=== PATIENT | male | born 1990 | race African-American/Black ===

== ENCOUNTER 2017-09-27 05:30 | Emergency (ER) | payer BC ==
[~2017-09-27] VITALS: Ht 180.3 cm; Wt 93.0 kg
[2017-09-27] MEDS ORDERED: NORCO 5-325 TA1 EACH PO (06:13)
== END 2017-09-27 06:50 | disposition home or self-care (01) ==
LOC: ER 05:30
DX: S92.421A Displaced fracture of distal phalanx of right great toe, initial encounter for closed fracture (principal); S92.501A Displaced unspecified fracture of right lesser toe(s), initial encounter for closed fracture; W22.8XXA Striking against or struck by other objects, initial encounter; Y93.89 Activity, other specified; Y92.39 Other specified sports and athletic area as the place of occurrence of the external cause; Y99.8 Other external cause status

== ENCOUNTER 2018-10-28 21:31 | Emergency (ER) | payer BC ==
[~2018-10-28] VITALS: Ht 182.9 cm; Wt 95.3 kg
[~2018-10-28 21:31] MED LIST: NORCO 5-325 TA1 EACH PO
[2018-10-28 23:04] VITALS: BP 142/79
== END 2018-10-28 23:05 | disposition home or self-care (01) ==
LOC: ER 21:31
DX: J06.9 Acute upper respiratory infection, unspecified (principal)

== ENCOUNTER 2019-06-26 19:39 | Emergency (ER) | payer BC ==
[~2019-06-26] VITALS: Ht 180.3 cm; Wt 99.8 kg
[2019-06-26] MEDS ORDERED: IBUPROFEN 800800 M1 PO (20:56)
[2019-06-26 21:08] VITALS: BP 113/58
== END 2019-06-26 19:58 | disposition home or self-care (01) ==
LOC: ER 19:39
DX: S90.32XA Contusion of left foot, initial encounter (principal); W18.39XA Other fall on same level, initial encounter; Y93.61 Activity, american tackle football; Y92.89 Other specified places as the place of occurrence of the external cause; Y99.8 Other external cause status

== ENCOUNTER 2019-07-05 21:33 | Emergency (ER) | payer BC ==
[~2019-07-05] VITALS: Ht 180.3 cm; Wt 99.8 kg
[~2019-07-05 21:33] MED LIST changes: +IBUPROFEN 800800 M1 PO
[2019-07-05 21:34] VITALS: BP 164/90
== END 2019-07-05 21:49 | disposition home or self-care (01) ==
LOC: ER 21:33
DX: M79.672 Pain in left foot (principal)

== ENCOUNTER 2021-03-16 22:29 | Emergency (ER) | payer BC ==
[~2021-03-16] VITALS: Ht 180.3 cm; Wt 99.8 kg
[2021-03-16] MEDS ORDERED: NOHOMEMEDICATIONS (23:06)
[2021-03-16 23:30] VITALS: BP 120/76
[2021-03-16 23:37] LABS: ABSOLUTE NEUTROPHILS 5.6 thou/uL (1.4-8.2); BASOPHILS 0.5 % (0.0-2.0); EOSINOPHILS 4.4 % (0.0-3.0); HEMATOCRIT 43.7 % (42.0-52.0); HEMOGLOBIN 15.4 gm/dL (14.0-18.0); LYMPHOCYTES 19.4 % (24.0-44.0); MCH 31.8 pg (26.0-34.0); MCHC 35.2 g/dL (28.0-37.0); MCV 90.3 fL (80.0-100.0); PLATELET COUNT 236 thou/uL (150-400); POLYS 67.7 % (36.0-66.0); RBC 4.84 mil/uL (4.50-6.00); RDW 13.3 % (10.5-14.5); WBC 8.3 thou/uL (4.0-11.0)
[2021-03-16 23:41] LABS: ANION GAP 10 mmol/L (7-16); BUN 10 mg/dL (7-18); CALCIUM 8.5 mg/dL (8.5-10.1); CHLORIDE 103 mmol/L (98-107); CO2 29 mmol/L (21-32); CREATININE 1.2 mg/dL (0.7-1.3); GLUCOSE 92 mg/dL (74-106); SODIUM 142 mmol/L (136-145)
[2021-03-16 23:51] LABS: ALBUMIN 3.7 g/dL (3.4-5.0); SGOT 16 U/L (15-37); SGPT 31 U/L (30-65); TOTAL BILIRUBIN 0.8 mg/dL (0.2-1.0); TOTAL PROTEIN 7.8 g/dL (6.4-8.2); TROPONIN-I <0.06 ng/mL (<0.06)
--- NOTE | 2021-03-18 07:50 | EKG ---
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: DAMON : 1990 Requested By: Nils Santoyo Order Number: [id number] MD: Desmond Trinh Measurements Intervals [place] Rate: 78 P: 19 [place]: 176 QRS: -20 QRSD: 96 T: -9 QT: 338 QTc: 385 Interpretive Statements Sinus rhythm Probable left ventricular hypertrophy Borderline T abnormalities, inferior leads No previous ECG available for comparison Electronically Signed On 03-18-2021 7:49:44 CDT by Desmond Trinh [email or web address] <ELECTRONICALLY SIGNED> By: Desmond Trinh MD, [facility] 03/18/21 [id number] Desmond Trinh MD, FACC /EPI
== END 2021-03-17 00:58 | disposition home or self-care (01) ==
LOC: ER 22:29
PROVIDERS: Emergency Medicine
DX: R07.89 Other chest pain (principal); Z20.822 Contact with and (suspected) exposure to COVID-19